=== PATIENT | male | born 1975 | race Caucasian/White ===

== ENCOUNTER 2016-08-13 00:21 | Inpatient (IN) | payer OTHER ==
[~2016-08-13] VITALS: Ht 182.9 cm; Wt 152.7 kg
[2016-08-13] VITALS (7 sets, daily range): BP systolic 125–155; BP diastolic 82–102; PULSE 75–99; TEMP 36.6–36.8; O2SAT 93–96; Ht 182.9 cm; Wt 152.7 kg
[~2016-08-13 00:21] MED LIST: ABL/15 PO; ERGO1TAB10 PO; TIZA4CAP PO; TOPI100T20 PO; TOPI50TA16 PO; VENL75CA73 PO
[2016-08-13] MEDS ORDERED: HYDROmorphone INJ 1 MG/ML SYR IV STA ×2 (00:43→02:45)
[2016-08-13] MEDS ORDERED: ONDANSETRON INJ 2 MG/ML 2 ML VIAL IV STA ×2 (00:43→02:45)
--- NOTE | 2016-08-13 00:52 | EMERGENCY ROOM VISIT NOTE ---
History Report prepared by Dave: Grisel Zapata Under the Supervision of: Dr. Willie Cooper M.D. First contact with patient: 00:32 Chief Complaint: ABDOMINAL PAIN Stated Complaint: ABD PAIN,PRESSURE Nursing Triage Summary: Patient c/o generalized abdominal pain that began "a few months ago." Associates hot flashes and nausea. History of Present Illness The patient is a 41 year old male who presents to the Emergency Room with complaints of persistent, progressively worsening, diffuse abdominal pain that began a few months ago. He currently rates his discomfort as an 8/10 in severity. The patient describes his pain as a pressure over his abdomen. He additionally associates nausea, abdominal bloating, and dry heaving with his symptoms today. The patient additionally notes hot flashes, difficulty breathing, and swelling in his legs today, but denies any chest pain or fevers. He states that he has taken Antacids without relief of his symptoms. The patient stats that lying flat worsens his pain. The patient's notes that the patient's face has seemed aguero over the past month. The patient states that he has been drinking nightly for the past several years. He notes that there is a family history of cirrhosis of the liver, noting that his father has from that. The patient states that he was previously evaluated in the emergency department for abdominal pain and states that his workup revealed constipation. He denies his pain today feeling similar to his constipation pain. Source of History: patient, spouse/significant other () Onset: few months ago Position: abdomen (diffuse) Symptom Intensity: 8/10 Quality: pressure Timing: worsening (progressively), other (persistent) Modifying Factors (Worsening): other (lying flat) Associated Symptoms: + nausea, No chest pain, No fevers Note: Associated Symptoms: abdominal bloating, dry heaving, hot flashes, difficulty breathing, swelling in his legs, face is aguero. Review of Systems See HPI for pertinent positives & negatives. A total of 10 systems reviewed and were otherwise negative. Past Medical & Surgical Medical Problems: (1) Hypertension Nos (2) Migraine (3) SBO (small bowel obstruction) Family History Cirrhosis of liver Diabetes mellitus FHx: cancer FHx: heart disease Social History Smoking Status: Never Smoker Alcohol Use: occasionally Marital Status: Occupation Status: employed Current/Historical Medications Scheduled Aripiprazole (Abilify), 15 MG PO DAILY Ergocalciferol (Vitamin D2), 1.25 MG PO WK Tizanidine (Zanaflex), 8 MG PO DAILY Topiramate (Topamax), 50 MG PO DAILY Topiramate (Topamax), 100 MG PO DAILY Venlafaxine Hcl (Venlafaxine Extended Rel), 150 MG PO DAILY Allergies Coded Allergies: No Known Allergies (Unverified , 08/13/16) Physical Exam Vital Signs Date Time Temp Pulse Resp B/P Pulse Ox O2 Delivery O2 Flow Rate FiO2 08/13/16 03:50 86 18 137/73 98 Room Air 08/13/16 01:49 101 16 133/80 96 Room Air 08/13/16 00:27 37.1 112 18 171/124 94 Room Air Physical Exam GENERAL: Patient is in moderate distress, uncomfortable appearing. HEENT: No acute trauma, normocephalic atraumatic, mucous membranes moist, no nasal congestion, no scleral icterus. NECK: No stridor, no adenopathy, no meningismus, trachea is midline. LUNGS: No dyspnea. Clear to auscultation and equal bilaterally. No wheeze, no rhonchi. HEART: Regular rate and rhythm. No murmurs, rubs, gallops appreciated. ABDOMEN: Diffuse vague tenderness to abdomen with fluid wave. Soft, bowel sounds positive, no masses appreciated, no peritonitis. BACK: No midline tenderness, no CVA tenderness EXTREMITIES: Normal motion all extremities, no cyanosis, no edema. NEUROLOGIC: Alert and oriented, no acute motor or sensory deficits, no focal weakness, cranial nerves grossly intact. SKIN: Diaphoretic. No rash, no jaundice. Medical Decision & Procedures ER Provider Diagnostic Interpretation: X ray results and stated below per my interpretation and radiologist interpretation. Other radiology results and stated below per my review and radiologist interpretation: CT Abdomen and Pelvis: There are a few left basilar lobe pulmonary nodules. Followup to exclude malignancy would be useful. There are a few dilated mid abdominal small bowel loops, likely due to early/ partial small bowel obstruction with likely transition in the left upper pelvis on series 2 image 74. Enteritis/ileus is in the differential. There is associated mesenteric edema. No free fluid. No free air. No evidence of pneumatosis or portal venous gas. Unremarkable appendix. There are a few colonic diverticula, but no CT evidence of acute diverticulitis. Hepatic steatosis. No CT evidence of acute cholecystitis or acute pancreatitis. No urinary obstruction. urinary bladder wall thickening, may be due to cystitis. Dilated mid abdominal small bowel loops, may be due to early/partial small bowel obstruction or enteritis. Radiologist: Lidya Kemp MD Study ready at 021 and initial results transmitted at 0229 Laboratory Results 08/13/16 01:00 Red Blood Count 5.18, Mean Corpuscular Volume 90.7, Mean Corpuscular Hemoglobin 30.5, Mean Corpuscular Hemoglobin Concent 33.6, Mean Platelet Volume 10.9, Neutrophils (%) (Auto) 72.6, Lymphocytes (%) (Auto) 15.8, Monocytes (%) (Auto) 9.1, Eosinophils (%) (Auto) 1.2, Basophils (%) (Auto) 1.2, Neutrophils # (Auto) 6.07, Lymphocytes # (Auto) 1.32, Monocytes # (Auto) 0.76, Eosinophils # (Auto) 0.10, Basophils # (Auto) 0.10 08/13/16 01:00 Test 08/13/16 01:00 White Blood Count 8.36 K/uL (4.8-10.8) Red Blood Count 5.18 M/uL (4.7-6.1) Hemoglobin 15.8 g/dL (14.0-18.0) Hematocrit 47.0 % (42-52) Mean Corpuscular Volume 90.7 fL (80-100) Mean Corpuscular Hemoglobin 30.5 pg (25-34) Mean Corpuscular Hemoglobin Concent 33.6 g/dl (32-36) Platelet Count 222 K/uL (130-400) Mean Platelet Volume 10.9 fL (7.4-10.4) Neutrophils (%) (Auto) 72.6 % Lymphocytes (%) (Auto) 15.8 % Monocytes (%) (Auto) 9.1 % Eosinophils (%) (Auto) 1.2 % Basophils (%) (Auto) 1.2 % Neutrophils # (Auto) 6.07 K/uL (1.4-6.5) Lymphocytes # (Auto) 1.32 K/uL (1.2-3.4) Monocytes # (Auto) 0.76 K/uL (0.11-0.59) Eosinophils # (Auto) 0.10 K/uL (0-0.5) Basophils # (Auto) 0.10 K/uL (0-0.2) RDW Standard Deviation 44.6 fL (36.4-46.3) RDW Coefficient of Variation 13.6 % (11.5-14.5) Immature Granulocyte % (Auto) 0.1 % Immature Granulocyte # (Auto) 0.01 K/uL (0.00-0.02) Urine Color YELLOW Urine Appearance CLEAR (CLEAR) Urine pH 5.0 (4.5-7.5) Urine Specific [place] 1.019 (1.000-1.030) Urine Protein NEG (NEG) Urine Glucose (UA) NEG (NEG) Urine Ketones NEG (NEG) Urine Occult Blood TRACE (NEG) Urine Nitrite NEG (NEG) Urine Bilirubin NEG (NEG) Urine Urobilinogen NEG (NEG) Urine Leukocyte Esterase NEG (NEG) Urine WBC (Auto) 1-5 /hpf (0-5) Urine RBC (Auto) 0-4 /hpf (0-4) Urine Hyaline Casts (Auto) 0 /lpf (0-5) Urine Epithelial Cells (Auto) 0-5 /lpf (0-5) Urine Bacteria (Auto) NEG (NEG) Anion Gap 11.0 mmol/L (3-11) Est Creatinine Clear Calc Drug Dose 133.4 ml/min Estimated GFR () 95.5 Estimated GFR (Non- 82.4 BUN/Creatinine Ratio 12.0 (10-20) Calcium Level 9.0 mg/dl (8.5-10.1) Magnesium Level 2.3 mg/dl (1.8-2.4) Total Bilirubin 0.3 mg/dl (0.2-1) Direct Bilirubin < 0.1 mg/dl (0-0.2) Aspartate Amino Transf (AST/SGOT) 36 U/L (15-37) Alanine Aminotransferase (ALT/SGPT) 91 U/L (12-78) Alkaline Phosphatase 119 U/L (45-117) Troponin I < 0.015 ng/ml (0-0.045) Total Protein 8.1 gm/dl (6.4-8.2) Albumin 4.1 gm/dl (3.4-5.0) Lipase 294 U/L (73-393) Laboratory results as reviewed by me. Medications Administered Medications (Trade) Dose Ordered Sig/[place]que Route Start Time Stop Time Status Last Admin Dose Admin Ondansetron HCl (Zofran Inj) 4 mg NOW STAT IV 08/13/16 00:43 08/13/16 00:44 DC 08/13/16 01:29 4 MG Hydromorphone HCl (Dilaudid Inj) 1 mg NOW STAT IV 08/13/16 00:43 08/13/16 00:44 DC 08/13/16 01:30 1 MG Fentanyl Citrate (Fentanyl Inj) 150 mcg NOW STAT IV 08/13/16 01:52 08/13/16 01:53 DC 08/13/16 02:10 150 MCG Hydromorphone HCl (Dilaudid Inj) 1 mg NOW STAT IV 08/13/16 02:45 08/13/16 02:46 DC 08/13/16 03:14 1 MG Ondansetron HCl 4 mg 4 mg NOW STAT IV 08/13/16 02:45 08/13/16 02:46 DC 08/13/16 03:14 4 MG Sodium Chloride (Nss 1000ml) 1,000 ml @ 75 mls/hr [id number] STAT IV 08/13/16 02:45 08/13/16 16:04 08/13/16 03:14 75 MLS/HR ED Course 0038: The patient was evaluated in room B10. A complete history and physical exam was performed. 0043: Ordered Dilaudid Inj 1 mg IV, Zofran Inj 4 mg IV. 0152: I reevaluated the patient and he has had no relief of his symptoms. He is going to have a CT scan. Ordered 150 mcg IV. 0242: I reevaluated the patient and he states that he is starting to feel better. He currently rates his discomfort as a 5/10 in severity. I discussed all the exam findings with him and I discussed the treatment plan. He verbalized complete understanding and agreement. He is going to be evaluated for further treatment. 0245: Ordered Sodium Chloride 1000 ml @ 75 mls/hr IV, Zofran Inj 4 mg IV, Dilaudid Inj 1 mg IV. 0255: I discussed the patient's case with Dr. Stock [facility] [place]. He is going to evaluate the patient for further treatment. Medical Decision Differential: Cholecystitis, Gallbladder disfunction, Hepatic Disfunction, Gastritis/PUD, Pancreatitis, ACS, Aortic Pathology, amongst other pathologies entertained. 41 yr old male with several months of non-specific abdominal pain and over last month admits swelling to face and abdomen. Admits chronic alcohol use as well though is not malnutritioned. He is quite uncomfortable with acute worsening pain this evening and multiple rounds dry heaving. Non-specific exam findings but clearly not feeling well. Multiple rounds narcotics. As continued narcotic need, even with normal labs, felt imaging necessary. CT with partial SBO vs enteritis though with clear transition point this is concerning, though unusual given no previous surgical history. No vomiting though noting continued nausea thus for now will hold off on NG tube until hospitalist eval. He is stable without evidence of infarction. Will bring in for further monitoring and NPO. Consults Time Called: 0246 Consulting Physician: LACI Grewal Returned Call: [phone] I discussed the patient's case with LACI Grewal. He is going to evaluate the patient for further treatment. Impression Primary Impression: Partial small bowel obstruction Additional Impression: Intractable abdominal pain Scribe Attestation The scribe's documentation has been prepared under my direction and personally reviewed by me in its entirety. I confirm that the note above accurately reflects all work, treatment, procedures, and medical decision making performed by me. Departure Information Dispostion Being Evaluated By Hospitalist Jonh Rogers M.D. (PCP) Problem Qualifiers
[2016-08-13 01:13] LABS: BASO % 1.2 %; COMPLETE YES; EOS % 1.2 %; IG% 0.1 %; LYMPH % 15.8 %; LYMPH ABS # 1.32 K/uL (1.2-3.4); MEAN CELL VOLUME 90.7 fL (80-100); MEAN CORPUSCULAR HEMOGLOBIN 30.5 pg (25-34); MEAN CORPUSCULAR HGB CONC 33.6 g/dl (32-36); MEAN PLATELET VOLUME 10.9 fL (7.4-10.4); MONO % 9.1 %; NEUT % 72.6 %; PLATELET COUNT 222 K/uL (130-400); RED BLOOD COUNT 5.18 M/uL (4.7-6.1); WHITE BLOOD COUNT 8.36 K/uL (4.8-10.8)
[2016-08-13 01:20] LABS: URINE APPEARANCE CLEAR (CLEAR); URINE BILIRUBIN NEG (NEG); URINE COLOR YELLOW; URINE EPITHELIAL CELL AUTO 0-5 /lpf (0-5); URINE NITRITE NEG (NEG); URINE SPECIFIC GRAVITY 1.019 (1.000-1.030); UROBILINOGEN NEG (NEG); ZZUR CULT IF INDIC CLEAN CATCH NO
[2016-08-13 01:21] LABS: MANUAL MICROSCOPIC REQUIRED? NO; REVIEW REQ? NO
[2016-08-13 01:30] LABS: ALT/SGPT 91 U/L (12-78); AST/SGOT 36 U/L (15-37); BLOOD UREA NITROGEN 13 mg/dl (7-18); CARBON DIOXIDE 24 mmol/L (21-32); CHLORIDE 109 mmol/L (98-107); GLUCOSE 108 mg/dl (70-99); MAGNESIUM 2.3 mg/dl (1.8-2.4); POTASSIUM 3.6 mmol/L (3.5-5.1); SODIUM 144 mmol/L (136-145)
[2016-08-13 01:35] LABS: ALKALINE PHOSPHATASE 119 U/L (45-117)
[2016-08-13] MEDS ORDERED: FENTANYL CITRATE INJ 50 MCG/1 ML 2 ML VIAL IV STA (01:52)
[2016-08-13] MEDS ORDERED: OPTIRAY 320 IV PRN (02:00)
[2016-08-13] MEDS ORDERED: SODIUM CHLORIDE 0.9% 1000ML 1,000 ML IV STA (02:45)
[2016-08-13] MEDS ORDERED: ONDANSETRON INJ 2 MG/ML 2 ML VIAL IV PRN (03:15)
[2016-08-13] MEDS ORDERED: LORAZEPAM 2 MG/ML 1 ML VIAL IV PRN (03:45)
--- NOTE | 2016-08-13 04:12 | History and Physical ---
History & Physical Date & Time of Service: Aug 13, 2016 at 03:53 Chief Complaint: Abd Pain,Pressure Primary Care Physician: Jonh Oakley M.D. History of Present Illness Source: patient 41 y/o M w/Hx bipolar disease and obesity. Pt states that he has had abdominal pain intermittently for 2 months. He has occasional constipation and denies diarrhea. His pain became acutely worse today and was accompanied by nausea and mostly dry heaving. He has not been able to tolerate PO intake. A CT of the abdomen was obtained in the ER which showed a likely SBO. He does not have a history of abdominal surgery. He denies fevers, SOB, CP or dysuria. His states that she feels his face and legs are swollen although he does not have pitting edema and was not aware of this himself. 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 Pt denies dependence on alcohol - States he drinks up to 12 beers a day but goes days without alcohol occasionally Smoking Status: Never Smoker Alcohol Use: heavy Marital Status: Occupational Status: employed Allergies Coded Allergies: No Known Allergies (Unverified , 08/13/16) Home Medications Scheduled Aripiprazole (Abilify), 15 MG PO DAILY Ergocalciferol (Vitamin D2), 1.25 MG PO WK Tizanidine (Zanaflex), 8 MG PO DAILY Topiramate (Topamax), 50 MG PO DAILY Topiramate (Topamax), 100 MG PO DAILY Venlafaxine Hcl (Venlafaxine Extended Rel), 150 MG PO DAILY Review of Systems Constitutional: No chills, No fever, No sweats Eyes: No eye pain, No worsening of vision ENT: No hearing loss, No nasal symptoms, No unusual epistaxis Respiratory: No cough, No sputum, No wheezing Cardiovascular: No PND, No chest pain, No orthopnea Abdomen: + nausea, + pain, + vomiting Musculoskeletal: No joint pain, No muscle pain Genitourinary - Male: No dysuria, No hematuria, No urinary frequency Neurologic: No memory loss, No paralysis, No weakness Psychiatric: No depression symptoms Endocrine: No fatigue Hematologic / Lymphatic: No abnormal bleeding/bruising Integumentary: No rash Allergic / Immunologic: No environmental allergies, No seasonal allergies Physical Exam Vital Signs Date Time Temp Pulse Resp B/P Pulse Ox O2 Delivery O2 Flow Rate FiO2 08/13/16 01:49 101 16 133/80 96 Room Air 08/13/16 00:27 37.1 112 18 171/124 94 Room Air General Appearance: WD/WN, no apparent distress, + pertinent finding (Obese young male in no distress) Head: normocephalic, atraumatic Eyes: normal inspection, PERRL, EOMI ENT: normal ENT inspection, hearing grossly normal, pharynx normal Neck: supple, + pertinent finding (Exam limited by habitus) Respiratory/Chest: chest non-tender, lungs clear, normal breath sounds Cardiovascular: regular rate, rhythm, no edema, no gallop, no JVD, no murmur, normal peripheral pulses Abdomen/GI: + tenderness (Mild diffuse tenderness - hypoactive BS - distention) , + distended Back: normal inspection Extremities/Musculoskelatal: normal inspection, no calf tenderness, normal capillary refill, no pedal edema, normal range of motion 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 nml as tested, no motor/sensory deficits, alert, normal mood/affect, normal reflexes, oriented x 3 Skin: normal color, warm/dry, no rash Lymphatic: no adenopathy Diagnostics Laboratory Results Results Past 24 Hours Test 08/13/16 01:00 Range/Units White Blood Count 8.36 4.8-10.8 K/uL Red Blood Count 5.18 4.7-6.1 M/uL Hemoglobin 15.8 14.0-18.0 g/dL Hematocrit 47.0 42-52 % Mean Corpuscular Volume 90.7 80-100 fL Mean Corpuscular Hemoglobin 30.5 25-34 pg Mean Corpuscular Hemoglobin Concent 33.6 32-36 g/dl Platelet Count 222 130-400 K/uL Mean Platelet Volume 10.9 7.4-10.4 fL Neutrophils (%) (Auto) 72.6 % Lymphocytes (%) (Auto) 15.8 % Monocytes (%) (Auto) 9.1 % Eosinophils (%) (Auto) 1.2 % Basophils (%) (Auto) 1.2 % Neutrophils # (Auto) 6.07 1.4-6.5 K/uL Lymphocytes # (Auto) 1.32 1.2-3.4 K/uL Monocytes # (Auto) 0.76 0.11-0.59 K/uL Eosinophils # (Auto) 0.10 0-0.5 K/uL Basophils # (Auto) 0.10 0-0.2 K/uL RDW Standard Deviation 44.6 36.4-46.3 fL RDW Coefficient of Variation 13.6 11.5-14.5 % Immature Granulocyte % (Auto) 0.1 % Immature Granulocyte # (Auto) 0.01 0.00-0.02 K/uL Urine Color YELLOW Urine Appearance CLEAR CLEAR Urine pH 5.0 4.5-7.5 Urine Specific [place] 1.019 1.000-1.030 Urine Protein NEG NEG Urine Glucose (UA) NEG NEG Urine Ketones NEG NEG Urine Occult Blood TRACE NEG Urine Nitrite NEG NEG Urine Bilirubin NEG NEG Urine Urobilinogen NEG NEG Urine Leukocyte Esterase NEG NEG Urine WBC (Auto) 1-5 0-5 /hpf Urine RBC (Auto) 0-4 0-4 /hpf Urine Hyaline Casts (Auto) 0 0-5 /lpf Urine Epithelial Cells (Auto) 0-5 0-5 /lpf Urine Bacteria (Auto) NEG NEG Sodium Level 144 136-145 mmol/L Potassium Level 3.6 3.5-5.1 mmol/L Chloride Level 109 98-107 mmol/L Carbon Dioxide Level 24 21-32 mmol/L Anion Gap 11.0 3-11 mmol/L Blood Urea Nitrogen 13 7-18 mg/dl Creatinine 1.10 0.60-1.40 mg/dl Est Creatinine Clear Calc Drug Dose 133.4 ml/min Estimated GFR () 95.5 Estimated GFR (Non- 82.4 BUN/Creatinine Ratio 12.0 10-20 Random Glucose 108 70-99 mg/dl Calcium Level 9.0 8.5-10.1 mg/dl Magnesium Level 2.3 1.8-2.4 mg/dl Total Bilirubin 0.3 0.2-1 mg/dl Direct Bilirubin < 0.1 0-0.2 mg/dl Aspartate Amino Transf (AST/SGOT) 36 15-37 U/L Alanine Aminotransferase (ALT/SGPT) 91 12-78 U/L Alkaline Phosphatase 119 45-117 U/L Troponin I < 0.015 0-0.045 ng/ml Total Protein 8.1 6.4-8.2 gm/dl Albumin 4.1 3.4-5.0 gm/dl Lipase 294 73-393 U/L Diagnostic Radiology CT abdomen: Consistent with mid small bowel obstruction Hepatic steatosis Impression Assessment and Plan 41 y/o M w/Hx bipolar disease and obesity. Pt states that he has had abdominal pain intermittently for 2 months. He has occasional constipation and denies diarrhea. His pain became acutely worse today and was accompanied by nausea and mostly dry heaving. He has not been able to tolerate PO intake. A CT of the abdomen was obtained in the ER which shows a likely SBO. 1) SBO - NPO, IVF, pain control and antiemetics as needed - surgery consulted as it is concerning that his symptoms have been present for 2 months. Pt is refusing an NGT at present - I have discussed NGT placement with him in the event that there is no improvement and he understands that this may be necessary. 2) Bipolar disease - his meds should not be D/Cd abruptly so that we will allow for ingestion as tolerated - there are no IV equivalents 3) Excessive ETOH intake - denies dependence or a history of withdrawal - we will place him on a daily banana bag in addition to provided IVF and provide Ativan PRN Heparin prophylaxis, full code Total time for this admit including review of records, labs, imaging - discussion with ER attending, pt and family 35 min Level of Care Telemetry Resuscitation Status FULL RESUSCITATION VTE Prophylaxis VTE Risk Assessment Done? Y/N: Yes Risk Level: Moderate Given or contraindicated: Unfractionated heparin SQ
[2016-08-13] MEDS ORDERED: LORAZEPAM INJ 1 MG in SYRINGE 0.5 ML IV PRN (05:15)
[2016-08-13] MEDS: MULTI-VITAMIN INFUSION INJ 10 ML, THIAMINE HCL INJ 100 MG, FoLIC ACID INJ 1 MG in SODIU... IV SCH (05:37)
[2016-08-13] MEDS: HYDROmorphone INJ 1 MG/ML SYR IV PRN ×3 (05:38→20:55)
[2016-08-13] MEDS ORDERED: INFLUENZA ADMINISTRATION CHARGE ONE (05:45)
[2016-08-13] MEDS ORDERED: INFLUENZA VIRUS QUAD VACCINE 0.5 ML SYR IM. ONE (05:45)
[2016-08-13] MEDS: D5NSS + 20MEQ KCL 1,000 ML IV SCH ×2 (06:21→15:42)
[2016-08-13 06:55] LABS: PARTIAL THROMBOPLASTIN RATIO 1.1; PROTHROMBIN TIME (PATIENT) 10.5 SECONDS (9.0-12.0)
--- NOTE | 2016-08-13 07:34 | Hospitalist Progress Note ---
Hospitalist Progress Note Date of Service Aug 13, 2016. (Laura Choi PA-C) Subjective Pt evaluation today including: conversation w/ patient, conversation w/ family , physical exam, chart review, lab review, review of studies, conversation w/ health analytics consultant Pain: mild abd pain PO Intake: Poor Voiding: no voiding problems The patient was seen and examined this morning. Pt reports feeling tired and uncomfortable with generalized abdominal pain throughout. He has not eaten anything today. Pt admits to waves of nausea with food in the past but none currently. Last BM was yesterday, formed, denies hematochezia and melana, no BRBPR. He denies ever having a workup completed as an outpatient and has not seen his PCP for this. Never had colonoscopy in the past. He admits to drinking heavily, with 2-8 beers 6 days out of the week to me. More per GI's note. PT eats one large meal per day with meat, starch and one vegetable, denies exercise. Pt states she notices his legs have been swollen, but the pt denies noticing it prior to this admission. 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 All Other Systems: Reviewed and Negative (other than listed in HPI) (Laura Choi, AARON) Objective Vital Signs Date Time Temp Pulse Resp B/P Pulse Ox O2 Delivery O2 Flow Rate FiO2 08/13/16 05:17 36.8 93 16 137/84 93 Room Air 08/13/16 03:50 86 18 137/73 98 Room Air 08/13/16 01:49 101 16 133/80 96 Room Air 08/13/16 00:27 37.1 112 18 171/124 94 Room Air (Laura Choi PA-C) Physical Exam General Appearance: WD/WN, no apparent distress, + obese Eyes: PERRL, EOMI ENT: hearing grossly normal, pharynx normal Neck: supple, no JVD Respiratory/Chest: chest non-tender, lungs clear, normal breath sounds, no respiratory distress, no accessory muscle use Cardiovascular: regular rate, rhythm, no murmur Abdomen: normal bowel sounds, non tender, + distended, + hepatomegaly, + splenomegaly, + pertinent finding (+ generalized pain with palpation but no acute focus, + dull with percussion throughout. ) Extremities: non-tender, normal inspection, no calf tenderness, + pedal edema ( 1+ pitting up to knee) Neurologic/Psychiatric: alert, normal mood/affect Skin: normal color, warm/dry (Laura Choi PA-C) Laboratory Results Last 24 Hours Test 08/13/16 01:00 White Blood Count 8.36 K/uL Red Blood Count 5.18 M/uL Hemoglobin 15.8 g/dL Hematocrit 47.0 % Mean Corpuscular Volume 90.7 fL Mean Corpuscular Hemoglobin 30.5 pg Mean Corpuscular Hemoglobin Concent 33.6 g/dl Platelet Count 222 K/uL Mean Platelet Volume 10.9 fL Neutrophils (%) (Auto) 72.6 % Lymphocytes (%) (Auto) 15.8 % Monocytes (%) (Auto) 9.1 % Eosinophils (%) (Auto) 1.2 % Basophils (%) (Auto) 1.2 % Neutrophils # (Auto) 6.07 K/uL Lymphocytes # (Auto) 1.32 K/uL Monocytes # (Auto) 0.76 K/uL Eosinophils # (Auto) 0.10 K/uL Basophils # (Auto) 0.10 K/uL RDW Standard Deviation 44.6 fL RDW Coefficient of Variation 13.6 % Immature Granulocyte % (Auto) 0.1 % Immature Granulocyte # (Auto) 0.01 K/uL Prothrombin Time 10.5 SECONDS Prothromb Time International Ratio 1.0 Activated Partial Thromboplast Time 27.4 SECONDS Partial Thromboplastin Ratio 1.1 Urine Color YELLOW Urine Appearance CLEAR Urine pH 5.0 Urine Specific [place] 1.019 Urine Protein NEG Urine Glucose (UA) NEG Urine Ketones NEG Urine Occult Blood TRACE Urine Nitrite NEG Urine Bilirubin NEG Urine Urobilinogen NEG Urine Leukocyte Esterase NEG Urine WBC (Auto) 1-5 /hpf Urine RBC (Auto) 0-4 /hpf Urine Hyaline Casts (Auto) 0 /lpf Urine Epithelial Cells (Auto) 0-5 /lpf Urine Bacteria (Auto) NEG Sodium Level 144 mmol/L Potassium Level 3.6 mmol/L Chloride Level 109 mmol/L Carbon Dioxide Level 24 mmol/L Anion Gap 11.0 mmol/L Blood Urea Nitrogen 13 mg/dl Creatinine 1.10 mg/dl Est Creatinine Clear Calc Drug Dose 133.4 ml/min Estimated GFR () 95.5 Estimated GFR (Non- 82.4 BUN/Creatinine Ratio 12.0 Random Glucose 108 mg/dl Calcium Level 9.0 mg/dl Magnesium Level 2.3 mg/dl Total Bilirubin 0.3 mg/dl Direct Bilirubin < 0.1 mg/dl Aspartate Amino Transf (AST/SGOT) 36 U/L Alanine Aminotransferase (ALT/SGPT) 91 U/L Alkaline Phosphatase 119 U/L Troponin I < 0.015 ng/ml Total Protein 8.1 gm/dl Albumin 4.1 gm/dl Lipase 294 U/L (Laura Choi, AARON) Assessment and Plan 41 y/o M w/Hx bipolar disease and obesity. Pt states that he has had abdominal pain intermittently for 2 months. He has occasional constipation and denies diarrhea. His pain became acutely worse today and was accompanied by nausea and mostly dry heaving. He has not been able to tolerate PO intake. A CT of the abdomen was obtained in the ER which shows a likely SBO. Partial SBO vs infectious etiology - GI consulted this morning- appreciate recs - will transition to clears - Stool cultures ordered, c diff, O&P - follow - Stool softeners, miralax daily. Continue aggressive bowel regimen. - Gen Surg consulted and do not see reason for surgery at this time. - Cont IVF, pain control and antiemetics as needed CT findings 1. Mildly distended and fluid-filled loops of proximal small bowel are nonspecific. Cortical clinically for evidence of a mild enteritis. There is no evidence of small bowel obstruction, and no thick walled bowel loops are identified. 2. Hepatomegaly and severe hepatic steatosis. 3. Mild cardiomegaly. 4. Mild splenomegaly. 5. There are mildly enlarged mediastinal and hilar lymph nodes partially visualized. Additionally, there are pulmonary and pleural-based nodules in the left lower lobe measuring up to 9 mm. Follow-up with a nonemergent CT scan of the chest is recommended for further interrogation. Bipolar disease - do not hold his home meds unless unable to tolerate orally, no IV equivalents - Continue home topiramate 150 mg QAM, effexor 150 mg QAM and abilify 15 mg QAM. Lung nodule - 9 mm lung nodule present in LLL, recommended follow up imaging with outpatient provider. Excessive ETOH intake - Heavy intake between 2-12 beers daily- denies dependence or a history of withdrawal - Counseled on cessation with CT scan findings of hepatomegaly and hepatic steatosis. Also counseled on improved diet and exercise, weight loss recommended. - Cont daily banana bag, ativan prn DVT ppx: SCDs, heparin SQ Code Status: Full Code Disposition: From home (Laura Choi, TOMASAC) Reviewed: Pt Seen/Exam by , KENNETH Notes, Labs, RAD (Lucy Langford MD) History PA Supervision Note: I interviewed and examined the patient. Discussed with the PA and agree with findings and plan as documented in the note. Any exceptions or clarifications are listed here: Pt still with significant nausea but no vomiting today, stephane clears for lunch and dinner with nausea afterwards. Abd still all across mid abdomen and is a 6/ 10. No BM in 2 days and has a pattern more towards constipation over the last few months. No heartburn, no blood in stool. Pt also complains of his whole body filling up with fluid a few times per week including legs, arms, and face. He c/o snoring and brother notes a wheezing noise which is clearly coming from upper airway. Pt denies any recent med changes, he is noncompliant with his CPAP machine at home. He notes dyspnea with exertion over the last few weeks. Reviewed CT abd/pel results with pt and family. He has never smoked, no toxic fume exposure, no travel in the last year. Vitals reviewed NAD, obese, AAOx3 HEENT anicteric sclerae, obese neck, no HIRAL, whistling sound noted with nasal breathing RRR no mgr nl S1S2 PULM CTAB no wcr Abd +BS, soft, diffusely +TTP without guarding or rebound tenderness, no masses , +hepatomegaly Ext trace pitting edema legs bilat SKin no rashes A/P: 41 yo obese male with h/o bipolar d/o, here with persistent diffuse abd pain and nausea with vomiting. Found to have severe fatty liver, mildly distended fluid filled proximal small bowel loops, pulm nodules and mildly enlarged hilar HIRAL on CT abd/pel. Differential includes infection, IBD, malignancy? -bisacodyl suppos -collect stool sample for cultures -plan for outpt colonoscopy -encouraged weight loss, abstinence from EtOH, low fat and low carb diet for fatty liver -try percocet for pain to see if could stephane percocet for home use for pain -antiemetics -check Chest CT here given SOB, pulm nodules and hilar adenopathy -check ECHO given edema and enlarged heart seen on CT -watch for EtOH withdrawal as is tachy and hypertensive -Flonase for upper airway congestion -use CPAP tonight and at home (has at home) -repeat AAS in AM -adv diet as tolerated -appreciate GI consult Documented By: Lucy Langford (Lucy Langford MD)
--- NOTE | 2016-08-13 08:13 | DIAGNOSTIC IMAGING REPORT ---
CT SCAN OF THE ABDOMEN AND PELVIS WITH IV CONTRAST CLINICAL HISTORY: Generalized abdominal pain. COMPARISON STUDY: Abdominal radiographs dated 03/03/2016. TECHNIQUE: Following the IV administration of 118 cc of Optiray 320, CT scan of the abdomen and pelvis is performed from the lung bases to the proximal femora. Images are reviewed in the axial, sagittal, and coronal planes. IV contrast was administered without complication. Automated dose control exposure was utilized. CT DOSE: 2348.89 mGy.cm FINDINGS: Lung bases: The heart is mildly enlarged and without pericardial effusion. There is a 9 mm pleural-based nodule in the left lower lobe along the major fissure seen on image #11. At least 3 additional left lower lobe pulmonary nodules are identified measuring up to 5 mm. There is no airspace consolidation or pleural effusion. Mildly enlarged subcarinal and hilar lymph nodes are partially visualized. A small hiatal hernia is noted. Liver: The contrast-enhanced liver is enlarged, measuring 20 cm in length. The liver demonstrates diffusely diminished attenuation consistent with hepatic steatosis. Fatty sparing is seen adjacent to the gallbladder fossa. There is no intrahepatic biliary ductal dilatation. The hepatic veins and portal veins are patent. Gallbladder: Unremarkable. Spleen: The spleen is mildly enlarged measuring 13.6 cm in length. Pancreas: Unremarkable. Adrenal glands: Unremarkable. Kidneys: The contrast enhanced kidneys are normal in size and without hydronephrosis. The kidneys enhance symmetrically. Abdominal vasculature: The abdominal aorta is normal in course and caliber. Bowel: There are mildly distended fluid-filled loops of proximal small bowel. These gradually transition to normal caliber loops. There is no evidence of bowel obstruction. There is mild to moderate colonic fecal retention. The appendix is well-visualized and normal. Peritoneum: There is no intraperitoneal free air or abdominal ascites. There is a fat-containing umbilical hernia. Lymphadenopathy: None. Pelvic viscera: The bladder, prostate, and seminal vesicles are normal as visualized. Skeletal structures: No lytic or blastic lesions are seen. IMPRESSION: 1. Mildly distended and fluid-filled loops of proximal small bowel are nonspecific. Cortical clinically for evidence of a mild enteritis. There is no evidence of small bowel obstruction, and no thick walled bowel loops are identified. 2. Hepatomegaly and severe hepatic steatosis. 3. Mild cardiomegaly. 4. Mild splenomegaly. 5. There are mildly enlarged mediastinal and hilar lymph nodes partially visualized. Additionally, there are pulmonary and pleural-based nodules in the left lower lobe measuring up to 9 mm. Follow-up with a nonemergent CT scan of the chest is recommended for further interrogation. Electronically signed by: Osorio Esquivel M.D. 08/13/2016 8:11 AM Dictated Date/Time: 08/13/2016 8:03 AM
[2016-08-13] MEDS: ARIPIprazole TAB 15 MG TAB PO SCH (08:58)
[2016-08-13] MEDS: TOPIRAMATE 50 MG TAB PO SCH (08:59)
[2016-08-13] MEDS: TOPIRAMATE 100 MG TAB PO SCH (08:59)
[2016-08-13] MEDS ORDERED: VENLAFAXINE HCL XR 150 MG CAPXR PO SCH (09:00)
--- NOTE | 2016-08-13 09:37 | CONSULTATION REPORT ---
DATE OF CONSULTATION: 08/13/2016 REASON FOR CONSULT: Small-bowel obstruction. HISTORY OF PRESENT ILLNESS: The patient is a 41-year-old male admitted by the hospitalist overnight for abdominal pain across the mid abdomen that has been present for 2 months. He has had nausea and dry heaves. His convinced him to finally come in the ER. He has not seen his family doctor previously. He has not had any previous bowel obstructions, has not had previous abdominal surgery other than an inguinal hernia. He has been moving his bowels and passing flatus well. These symptoms have been present but not since admission this morning. He does not have any nausea currently. He was taking some [id number] medications for heartburn as he feels some burning in his upper abdomen, nothing in the esophagus. PAST MEDICAL HISTORY: 1. Bipolar. 2. Obesity. PAST SURGICAL HISTORY: Right inguinal hernia repair and hydrocelectomy and knee surgery. 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 He drinks between 2-8 beers regularly but not every day. ALLERGIES: NKDA. HOME MEDICATIONS: Abilify 15 mg daily, vitamin D supplement, Zanaflex 8 mg daily, Topamax 150 mg daily, and venlafaxine 150 mg daily. REVIEW OF SYSTEMS: GASTROINTESTINAL: As above. No reflux esophagitis. He has not seen his family doctor for these problems. No back pain or right upper quadrant pain. PHYSICAL EXAMINATION: GENERAL: He is in no acute distress, resting comfortably in bed. VITAL SIGNS: Temperature 36.7, pulse 92, respirations 16, blood pressure 148/100, pulse ox 93% on room air. HEENT: Unremarkable. He apparently refused an NG tube. ABDOMEN: Soft, minimally distended and no localizing tenderness. No inguinal hernias. LABORATORY DATA: White count is 8000, hemoglobin 15.8, hematocrit 47.0, platelets 223,000. Sodium 144, potassium 3.6, BUN 13, creatinine 1.1, glucose 108. IMAGING: Noncontrast CT was read with some bowel dilation, possible transition point and possibly early small-bowel obstruction. To me there is minimal small bowel dilation of the lower mid abdomen, however, the lack of contrast is suboptimal, but not worth repeating at this point. IMPRESSION: Abdominal pain. PLAN: His history and clinical findings do not suggest a bowel obstruction. He does not have any surgical findings at this time. Would consider GI evaluation. [facility]
--- NOTE | 2016-08-13 10:42 | Gastrointestinal Consultation ---
Gastrointestinal Consultation Date of Consultation: Aug 13, 2016 Attending Physician: Dr. Oakley Consulting Physician: Zahira Wright PA-C Reason for Consultation: Chronic abdominal pain, SBO History of Present Illness Patient is a 41 year old male who was admitted with questionable findings of an SBO vs enteritis on CT imaging. The patient reports a 6 month history of abdominal discomfort & a change in his bowel habits. He reports he has felt that despite moving his bowels regularly, he may not be evacuating his stool. He denies any diarrhea. He describes his discomfort as generalized. He reports that he has nausea and occasional vomiting. He reports that he does not experience heartburn or reflux. He does drink up to 12 beers per day. He denies any known family history of GI malignancy or IBD. He denies rectal bleeding. A stat read of a CT scan in the ER questions a PSBO vs enteritis. A final read indicated mildly distended and fluid filled loops of proximal small bowel that was nonspecific. He denies fever, chills, diarrhea. He was noted to have hepatomegaly & severe hepatic steatosis. He was also noted to have mildly enlarged mediastinal and hilar lymph nodes and pulmonary/pleural nodules in the LLL of the lung. He offers no further complaints. Past Medical/Surgical History Medical Problems: (1) Intractable abdominal pain Status: Acute (2) Partial small bowel obstruction Status: Acute Past Medical History: Bipolar disorder Obesity Past Surgical History: No reported surgical history Family History Cirrhosis of liver Diabetes mellitus FHx: cancer FHx: heart disease Social History Smoking Status: Former Smoker Alcohol Use: occasionally Marital Status: Occupation Status: employed Allergies Coded Allergies: No Known Allergies (Unverified , 08/13/16) Current Medications Home Meds and Scripts Medications Dose Route/Sig Max Daily Dose Days Date Category Zanaflex (Tizanidine HCl) 4 Mg Cap 8 Mg PO DAILY 03/03/16 Reported Venlafaxine Extended Rel (Venlafaxine Hcl) 75 Mg Cap 150 Mg PO DAILY 03/03/16 Reported Abilify (Aripiprazole) 15 Mg Tab 15 Mg PO DAILY 03/03/16 Reported Topamax (Topiramate) 100 Mg Tab 100 Mg PO DAILY 03/03/16 Reported Topamax (Topiramate) 50 Mg Tab 50 Mg PO DAILY 03/03/16 Reported Vitamin D2 (Ergocalciferol) 400 Unit Tab 1.25 Mg PO WK 03/03/16 Reported Review of Systems Constitutional: No problem reported Eyes: No problem reported Respiratory: No cough, No shortness of breath Cardiac: No chest pain Abdomen: + constipation, + nausea, + pain, No GI bleeding, No diarrhea, No vomiting Musculoskeletal: No joint pain Psych: No problem reported Heme: No problem reported Endo: No problem reported Skin: No problem reported Physical Exam Date Time Temp Pulse Resp B/P Pulse Ox O2 Delivery O2 Flow Rate FiO2 08/13/16 08:00 Room Air 08/13/16 07:34 36.7 92 16 148/100 93 Room Air 08/13/16 05:17 36.8 93 16 137/84 93 Room Air 08/13/16 03:50 86 18 137/73 98 Room Air 08/13/16 01:49 101 16 133/80 96 Room Air 08/13/16 00:27 37.1 112 18 171/124 94 Room Air General Appearance: WD/WN, no apparent distress Eyes: normal inspection, PERRL ENT: hearing grossly normal Respiratory/Chest: lungs clear, normal breath sounds Cardiovascular: regular rate, rhythm, no edema Abdomen: normal bowel sounds, soft, + tenderness (generalized) Extremities: non-tender Neurologic/Psych: alert, oriented x 3 Skin: normal color Laboratory Results Last 24 Hours Test 08/13/16 01:00 White Blood Count 8.36 K/uL Red Blood Count 5.18 M/uL Hemoglobin 15.8 g/dL Hematocrit 47.0 % Mean Corpuscular Volume 90.7 fL Mean Corpuscular Hemoglobin 30.5 pg Mean Corpuscular Hemoglobin Concent 33.6 g/dl Platelet Count 222 K/uL Mean Platelet Volume 10.9 fL Neutrophils (%) (Auto) 72.6 % Lymphocytes (%) (Auto) 15.8 % Monocytes (%) (Auto) 9.1 % Eosinophils (%) (Auto) 1.2 % Basophils (%) (Auto) 1.2 % Neutrophils # (Auto) 6.07 K/uL Lymphocytes # (Auto) 1.32 K/uL Monocytes # (Auto) 0.76 K/uL Eosinophils # (Auto) 0.10 K/uL Basophils # (Auto) 0.10 K/uL RDW Standard Deviation 44.6 fL RDW Coefficient of Variation 13.6 % Immature Granulocyte % (Auto) 0.1 % Immature Granulocyte # (Auto) 0.01 K/uL Prothrombin Time 10.5 SECONDS Prothromb Time International Ratio 1.0 Activated Partial Thromboplast Time 27.4 SECONDS Partial Thromboplastin Ratio 1.1 Urine Color YELLOW Urine Appearance CLEAR Urine pH 5.0 Urine Specific [place] 1.019 Urine Protein NEG Urine Glucose (UA) NEG Urine Ketones NEG Urine Occult Blood TRACE Urine Nitrite NEG Urine Bilirubin NEG Urine Urobilinogen NEG Urine Leukocyte Esterase NEG Urine WBC (Auto) 1-5 /hpf Urine RBC (Auto) 0-4 /hpf Urine Hyaline Casts (Auto) 0 /lpf Urine Epithelial Cells (Auto) 0-5 /lpf Urine Bacteria (Auto) NEG Sodium Level 144 mmol/L Potassium Level 3.6 mmol/L Chloride Level 109 mmol/L Carbon Dioxide Level 24 mmol/L Anion Gap 11.0 mmol/L Blood Urea Nitrogen 13 mg/dl Creatinine 1.10 mg/dl Est Creatinine Clear Calc Drug Dose 133.4 ml/min Estimated GFR () 95.5 Estimated GFR (Non- 82.4 BUN/Creatinine Ratio 12.0 Random Glucose 108 mg/dl Calcium Level 9.0 mg/dl Magnesium Level 2.3 mg/dl Total Bilirubin 0.3 mg/dl Direct Bilirubin < 0.1 mg/dl Aspartate Amino Transf (AST/SGOT) 36 U/L Alanine Aminotransferase (ALT/SGPT) 91 U/L Alkaline Phosphatase 119 U/L Troponin I < 0.015 ng/ml Total Protein 8.1 gm/dl Albumin 4.1 gm/dl Lipase 294 U/L Impression Patient is a 41 year old male with abdominal discomfort & a change in his bowel habits for 6 months. Imaging appears to represent a possible enteritis. Patient denies diarrhea, fever, or chills. CT imaging also indicates lymph node abnormalities. Plan 1) Recommend stool culture. 2) Clear liquid diet. Advance as tolerated. 3) Miralax 17 gm daily. 64 oz water daily. 4) Supportive care with antiemetics for now, however patient should consider outpatient colonoscopy for further evaluation of 6 month change in bowel habits. 5) Recommend 10% total body weight loss, alcohol abstinence, healthy diet & lifestyle for fatty liver findings on CT imaging. 6) Recommend primary team follow-up on abnormal lymph nodes & nodules as noted on CT imaging. Thank you for allowing us to participate in the care of this patient. If you should have any further questions or concerns, do not hesitate to contact us. Agree with HOWARD Roa as above Abd: Soft, Tender B/L LQ, ND, +BS Continue current therapy Recommend outpatient colonoscopy
[2016-08-13] MEDS: POLYETHYLENE (MIRALAX) 17 GM PACK PO SCH (14:13)
[2016-08-13] MEDS: HEPARIN SOD 5000 UNIT/0.5 ML CARP SQ SCH ×2 (14:15→20:49)
[2016-08-13] MEDS ORDERED: BISACODYL 10 MG SUPP PR STA (18:09)
[2016-08-13] MEDS ORDERED: PROCHLORPERAZINE INJ 10 MG in SYRINGE 8 ML IV PRN (18:15)
[2016-08-13] MEDS ORDERED: OXYCODONE/ACETAMINOPHEN 5-325 TAB PO PRN (18:30)
[2016-08-13] MEDS ORDERED: FLUTICASONE PROPIONATE NA SPR 16 GM BTL ONE (18:45)
[2016-08-14 00:20] VITALS: BP 148/103; PULSE 87
[2016-08-14] MEDS: D5NSS + 20MEQ KCL 1,000 ML IV SCH (03:22)
[2016-08-14 04:24] VITALS: BP 141/96; PULSE 89; TEMP 36.6; O2SAT 97
[2016-08-14] MEDS: MULTI-VITAMIN INFUSION INJ 10 ML, THIAMINE HCL INJ 100 MG, FoLIC ACID INJ 1 MG in SODIU... IV SCH (05:50)
[2016-08-14] MEDS: HEPARIN SOD 5000 UNIT/0.5 ML CARP SQ SCH ×2 (05:53→14:18)
[2016-08-14 06:48] LABS: BASO % 0.8 %; BASO ABS # 0.06 K/uL (0-0.2); COMPLETE YES; EOS % 2.2 %; HEMATOCRIT 45.7 % (42-52); IG% 0.1 %; LYMPH ABS # 0.85 K/uL (1.2-3.4); MEAN CELL VOLUME 94.8 fL (80-100); MEAN CORPUSCULAR HEMOGLOBIN 30.5 pg (25-34); MEAN CORPUSCULAR HGB CONC 32.2 g/dl (32-36); MEAN PLATELET VOLUME 10.9 fL (7.4-10.4); MONO % 7.8 %; NEUT % 78.1 %; PLATELET COUNT 206 K/uL (130-400); RED BLOOD COUNT 4.82 M/uL (4.7-6.1); WHITE BLOOD COUNT 7.72 K/uL (4.8-10.8)
[2016-08-14 07:14] VITALS: BP 149/86; PULSE 104; TEMP 36.6; O2SAT 94
[2016-08-14 07:24] LABS: ALKALINE PHOSPHATASE 112 U/L (45-117); ALT/SGPT 104 U/L (12-78); AST/SGOT 45 U/L (15-37); BLOOD UREA NITROGEN 8 mg/dl (7-18); BUN/CREATININE RATIO 6.8 (10-20); C-REACTIVE PROTEIN 1.11 mg/dl (0-0.29); CALCIUM 8.5 mg/dl (8.5-10.1); CARBON DIOXIDE 28 mmol/L (21-32); CHLORIDE 108 mmol/L (98-107); GLUCOSE 109 mg/dl (70-99); POTASSIUM 4.1 mmol/L (3.5-5.1); SODIUM 142 mmol/L (136-145)
[2016-08-14] MEDS ORDERED: PERFLUTREN LIPID MICROSPHERE (DEFINITY) IV ONE (07:47)
--- NOTE | 2016-08-14 07:47 | SURGERY PROGRESS NOTE ---
DATE: 08/14/2016 Jerome overall feels fine. He has no real change from yesterday. He is not complaining of any abdominal discomfort. His last vitals show a temperature of 36.6. His pulse rate was 104, respirations 18, blood pressure 149/86, O2 saturation is 94 on room air. His abdomen was benign. He has not moved his bowels yet. He stated he tolerated liquid diet without any problem. At this point, there is nothing surgically you can offer this gentleman. We will be able to follow him on a p.r.n. basis if need be and plans for gastroenterology have been made.
[2016-08-14] MEDS: ARIPIprazole TAB 15 MG TAB PO SCH (08:22)
[2016-08-14] MEDS: POLYETHYLENE (MIRALAX) 17 GM PACK PO SCH (08:23)
[2016-08-14] MEDS: TOPIRAMATE 100 MG TAB PO SCH (08:23)
[2016-08-14] MEDS: TOPIRAMATE 50 MG TAB PO SCH (08:24)
[2016-08-14] MEDS ORDERED: OPTIRAY 320 IV PRN (08:45)
[2016-08-14] MEDS ORDERED: FLUTICASONE PROPIONATE NA SPR 16 GM BTL SCH (09:00)
[2016-08-14] MEDS ORDERED: POLYETHYLENE (MIRALAX) 17 GM PACK PO SCH (09:00)
[2016-08-14] MEDS ORDERED: VENLAFAXINE HCL XR 75 MG CAPXR PO SCH (09:00)
--- NOTE | 2016-08-14 09:33 | DIAGNOSTIC IMAGING REPORT ---
ABDOMEN 2 VIEWS CLINICAL HISTORY: f/u partial SBO obstruction COMPARISON STUDY: CT abdomen and pelvis 08/13/2016 FINDINGS: Improved bowel pattern. No evidence for small bowel distention. Unremarkable air within the colon. No secondary signs of free air. IMPRESSION: Improved exam. Nonobstructive bowel pattern currently. Electronically signed by: Luis Enrique Sewell M.D. 08/14/2016 9:32 AM Dictated Date/Time: 08/14/2016 9:31 AM
--- NOTE | 2016-08-14 10:10 | DIAGNOSTIC IMAGING REPORT ---
CHEST CT WITH CONTRAST CT DOSE: 1084.04 mGy.cm HISTORY: Nodule pulm nodule seen on CT abd, dyspnea on exertion TECHNIQUE: Multiaxial CT images of the chest were performed following the intravenous administration of contrast. COMPARISON: CT abdomen and pelvis dated 08/13/2016 FINDINGS: Lungs are clear. Small nodularity left lung base measures up to 4.5 mm. Mediastinal and hilar regions show several nodes in the periaortic, pretracheal, as well as hilar regions measuring approximately 12 to 13 mm. Limited evaluation the upper abdomen again demonstrates fatty infiltration of liver. IMPRESSION: 1. Several indeterminate mediastinal and hilar nodes. 2. Small nodular density left base measuring 4.5 mm. 3. A 4-[address] of the chest follow-up is suggested initially 4. Mild cardiomegaly. Electronically signed by: Luis Enrique Sewell M.D. 08/14/2016 10:08 AM Dictated Date/Time: 08/14/2016 10:03 AM
[2016-08-14 11:19] VITALS: BP 143/93; PULSE 77; TEMP 36.6; O2SAT 95
[2016-08-14 15:06] VITALS: BP 141/96; PULSE 78; TEMP 36.3; O2SAT 95
--- NOTE | 2016-08-14 15:30 | ECHOCARDIOGRAM REPORT ---
*NOTICE TO RECEIVING [employer] This information is strictly Confidential and protected under [place] law. [place] law prohibits you from making any further disclosure of this information unless further disclosure is expressly permitted by the written consent of the person to whom it pertains or is authorized by law. A general authorization for the release of medical or other information is not sufficient for this purpose. Hospital accepts no responsibility if the information is made available to any other person, INCLUDING THE PATIENT. Interpretation Summary * Name: MEGHA MARROQUIN Study Date: 08/14/2016 07:31 AM BP: 149/86 mmHg * Patient Location: [facility]\S\N288\S\2 HR: 104 * : 1975 (M/d/yyyy) Gender: Male Height: 72 in * Age: 41 yrs Ethnicity: CA Weight: 337 lb * Ordering Physician: Lucy Langford * Performed By: Yue Andrade * * Reason For Study: LEG EDEMA, SOB, ENLARGED HEART ON CT * BSA: 2.7 m2 * -- Conclusions -- * The left ventricle is normal in size. * Left ventricular systolic function is normal. * Ejection Fraction = 60-65%. * The left ventricular wall motion is normal. * There is borderline concentric left ventricular hypertrophy. * The right ventricle is moderate to severely dilated. * There is moderate to severe right ventricular hypertrophy. * The right ventricular systolic function is normal. * No obvious valvular disease on very technically limited Doppler. Procedure Details * A complete two-dimensional transthoracic echocardiogram was performed (2D, M-mode, Doppler and color flow Doppler). * The study was technically difficult. * Limited views were obtained. * There were technical limitations due to patient'sbody habitus * A contrast injection of Definity was performed to improve assessment of LV function. * Contrast was injected into an intravenous site in the right arm. * One vial of Definity ultrasound contrast was diluted in normal saline to a total volume of 10 ml. A total of '3' ml of solution was administered during imaging. * Lot # [id number] of Definity utilized for procedure. * Expiration date 06/26. * The attending nurse who injected the contrast agent was LIANG VALENCIA RN. Left Ventricle * The left ventricle is normal in size. * There is borderline concentric left ventricular hypertrophy. * Ejection Fraction = 60-65%. * Left ventricular systolic function is normal. * The left ventricular wall motion is normal. Right Ventricle * The right ventricle is moderate to severely dilated. * There is moderate to severe right ventricular hypertrophy. * The right ventricular systolic function is normal. Atria * The left atrial size is normal. * Right atrium not well visualized. Tricuspid Valve * The tricuspid valve is not well visualized, but is grossly normal. * There is mild tricuspid regurgitation. Aortic Valve * The aortic valve is not well visualized. * There is no significant aortic regurgitation. Pulmonic Valve * The pulmonic valve is not well visualized. * There is no significant pulmonary regurgitation. Great Vessels * The aortic root is normal size. * No obvious dissection could be visualized. * The pulmonary artery is normal size. Pericardium/Pleural * There is no pericardial effusion. MMode 2D Measurements and Calculations IVSd 1.2 cm IVSs 1.6 cm LVIDd 4.3 cm LVIDs 2.9 cm LVPWd 0.98 cm LVPWs 1.7 cm IVS/LVPW 1.3 FS 32.4 % EDV(Teich) 84.4 ml ESV(Teich) 33.0 ml EF(Teich) 60.9 % EDV(cubed) 81.1 ml ESV(cubed) 25.1 ml EF(cubed) 69.1 % % IVS thick 31.8 % % LVPW thick 73.3 % LV mass(C)d 167.1 grams LV mass(C)dI 62.8 grams/m\S\2 LV mass(C)s 183.9 grams LV mass(C)sI 69.2 grams/m\S\2 CO(Teich) 4.5 l/min CI(Teich) 1.7 l/min/m\S\2 SV(Teich) 51.4 ml SI(Teich) 19.3 ml/m\S\2 CO(cubed) 4.9 l/min CI(cubed) 1.9 l/min/m\S\2 SV(cubed) 56.0 ml SI(cubed) 21.1 ml/m\S\2 ACS 1.5 cm asc Aorta Diam 3.4 cm LVOT diam 2.0 cm LVOT area 3.3 cm\S\2 LVAd ap4 24.9 cm\S\2 LVLd ap4 7.3 cm EDV(MOD-sp4) 70.0 ml LVAs ap4 14.4 cm\S\2 LVLs ap4 6.4 cm ESV(MOD-sp4) 27.0 ml EF(MOD-sp4) 61.4 % LVAd ap2 15.6 cm\S\2 LVLd ap2 6.6 cm EDV(MOD-sp2) 31.0 ml LVAs ap2 8.8 cm\S\2 LVLs ap2 5.6 cm ESV(MOD-sp2) 12.0 ml EF(MOD-sp2) 61.3 % CO(MOD-sp4) 3.8 l/min CI(MOD-sp4) 1.4 l/min/m\S\2 SV(MOD-sp4) 43.0 ml SI(MOD-sp4) 16.2 ml/m\S\2 CO(MOD-sp2) 1.7 l/min CI(MOD-sp2) 0.63 l/min/m\S\2 SV(MOD-sp2) 19.0 ml SI(MOD-sp2) 7.1 ml/m\S\2 Doppler Measurements and Calculations MV E max justin 52.3 cm/sec MV A max justin 80.5 cm/sec MV E/A 0.65 MV dec time 0.13 sec Ao V2 max 110.1 cm/sec Ao max PG 4.9 mmHg Ao max PG (full) 1.9 mmHg LIBRADO(V,A) 2.5 cm\S\2 LIBRADO(V,D) 2.5 cm\S\2 LV V1 max PG 2.9 mmHg LV V1 mean PG 1.3 mmHg LV V1 max 85.7 cm/sec LV V1 mean 52.3 cm/sec LV V1 VTI 15.8 cm SV(LVOT) 51.6 ml SI(LVOT) 19.4 ml/m\S\2 PA V2 max 86.4 cm/sec PA max PG 3.0 mmHg TR max justin 198.6 cm/sec
[2016-08-14] MEDS ORDERED: FLNIN (17:10)
[2016-08-14] MEDS ORDERED: ERGO1TAB10 PO (17:10)
[2016-08-14] MEDS ORDERED: MRLP17 PO (17:10)
[2016-08-14] MEDS ORDERED: OXYC-57 PO (17:10)
[2016-08-14] MEDS ORDERED: ONDA4TAB10 SL (17:10)
[2016-08-14] MEDS ORDERED: VENL75CA73 PO (17:10)
--- NOTE | 2016-08-14 17:24 | Discharge Instructions ---
Discharge Instructions Admission Reason for Admission: Abdominal pain, intractable nausea/vomiting Discharge Discharge Diagnosis / Problem: Abdominal pain, intractable nausea/vomiting, Right ventricular hypertrophy Discharge Goals Goal(s): Improve disease control, Therapeutic intervention Activity Recommendations Activity Limitations: resume your previous activity Lifting Limitations: none Exercise/Sports Limitations: as tolerated Shower/Bathe: no limitations . Instructions / Follow-Up Instructions / Follow-Up You were admitted for worsening abdominal pain x 2 months with nausea and vomiting. While you were here, you were found to have a partial small bowel obstruction on CT scan which did resolve by the next day on xray. Your symptoms were managed with pain medicine and medicine for nausea, however you will need to follow up with the [facility] in the office. You may need a colonoscopy and other further testing to look at your small intestine to figure out the cause of your ongoing abdominal pain. You were also found to have a severely fatty liver and mildly elevated liver tests on your blood work. You should quit drinking all alcohol, eat a low fat diet, and work on weight loss. This can also be followed by the [facility]. You were given a prescription for pain medicine and for nausea to take once you go home. While you were here, it was noted that you have had worsening shortness of breath and intermittent swelling in your legs. An ECHOCARDIOGRAM (ultrasound of the heart) was performed which showed moderate-severe right sided ventricular hypertrophy as well as moderate-severe right ventricular dilation, but there was NO congestive heart failure. You were also noted to have a small pulmonary nodule and some mildly enlarged lymph nodes in your chest on a CT scan. You should follow up with a Slip Cover Estimator, Dr. Junito Salas, within 2 weeks. It is ok for you to see one of his Physician's Assistants (Micky Cintron or Ernestine) first if you can get an appointment with one of them sooner. You may need further testing on your heart. You should certainly start using your CPAP for your sleep apnea on a regular basis and you will need to get a new mask. Usually you can call your [employer] equipment company that brought you the machine in order to obtain a new mask. Please follow up with your PCP Dr. Oakley within 1 week as well. Your blood pressure was elevated here somewhat and you may end up needing treatment for high blood pressure with your family doctor if this persists. Current Hospital Diet Patient's current hospital diet: Low Fat Diet Discharge Diet Recommended Diet: Low Fat Diet Procedures Procedures Performed: CT abdomen/pelvis CT Chest Echocardiogram Abdomen xray Pending Studies Studies pending at discharge: yes List of pending studies: Stool culture Stool ova and parasites Medical Emergencies . Who to Call and When: Medical Emergencies: If at any time you feel your situation is an emergency, please call 911 immediately. . Non-Emergent Contact Non-Emergency issues call your: Primary Care Provider Call Non-Emergent contact if: temperature is above 101, your pain is not controlled, your pain is worsening, your pain is unusual for you, your pain is concerning you, you have any medication questions . . "Provider Documentation" section prepared by Lucy Langford. VTE Core Measure Inpt VTE Proph given/why not?: Unfractionated heparin SQ [place] Drug Monitoring Program Search Results: patient reviewed within database, no issues identified
[2016-08-14 18:08] VITALS: BP 141/96; PULSE 78; TEMP 36.3; O2SAT 95
--- NOTE | 2016-08-14 20:11 | Discharge Summary ---
Discharge Summary Admission Date: Aug 13, 2016 at 03:42 Discharge Date: Aug 14, 2016 Discharge Disposition: Home Principal Diagnosis: Abdominal pain,intractable nausea/vomiting,partial SBO Problems/Secondary Diagnoses: Partial SBO Bipolar disorder Obesity Constipation Hepatomegaly Severe hepatic steatosis Mild cardiomegaly Mild splenomegaly Mildly enlarged mediastinal and hilar lymph nodes Pulmonary and pleural-based nodules in the left lower lobe ETOH abuse Obstructive sleep apnea Mod-severe RVH Mod-severe right ventricular dilatation Dyspnea on exertion Procedures: CT SCAN OF THE ABDOMEN AND PELVIS WITH IV CONTRAST CLINICAL HISTORY: Generalized abdominal pain. COMPARISON STUDY: Abdominal radiographs dated 03/03/2016. TECHNIQUE: Following the IV administration of 118 cc of Optiray 320, CT scan of the abdomen and pelvis is performed from the lung bases to the proximal femora. Images are reviewed in the axial, sagittal, and coronal planes. IV contrast was administered without complication. Automated dose control exposure was utilized. CT DOSE: 2348.89 mGy.cm FINDINGS: Lung bases: The heart is mildly enlarged and without pericardial effusion. There is a 9 mm pleural-based nodule in the left lower lobe along the major fissure seen on image #11. At least 3 additional left lower lobe pulmonary nodules are identified measuring up to 5 mm. There is no airspace consolidation or pleural effusion. Mildly enlarged subcarinal and hilar lymph nodes are partially visualized. A small hiatal hernia is noted. Liver: The contrast-enhanced liver is enlarged, measuring 20 cm in length. The liver demonstrates diffusely diminished attenuation consistent with hepatic steatosis. Fatty sparing is seen adjacent to the gallbladder fossa. There is no intrahepatic biliary ductal dilatation. The hepatic veins and portal veins are patent. Gallbladder: Unremarkable. Spleen: The spleen is mildly enlarged measuring 13.6 cm in length. Pancreas: Unremarkable. Adrenal glands: Unremarkable. Kidneys: The contrast enhanced kidneys are normal in size and without hydronephrosis. The kidneys enhance symmetrically. Abdominal vasculature: The abdominal aorta is normal in course and caliber. Bowel: There are mildly distended fluid-filled loops of proximal small bowel. These gradually transition to normal caliber loops. There is no evidence of bowel obstruction. There is mild to moderate colonic fecal retention. The appendix is well-visualized and normal. Peritoneum: There is no intraperitoneal free air or abdominal ascites. There is a fat-containing umbilical hernia. Lymphadenopathy: None. Pelvic viscera: The bladder, prostate, and seminal vesicles are normal as visualized. Skeletal structures: No lytic or blastic lesions are seen. IMPRESSION: 1. Mildly distended and fluid-filled loops of proximal small bowel are nonspecific. Cortical clinically for evidence of a mild enteritis. There is no evidence of small bowel obstruction, and no thick walled bowel loops are identified. 2. Hepatomegaly and severe hepatic steatosis. 3. Mild cardiomegaly. 4. Mild splenomegaly. 5. There are mildly enlarged mediastinal and hilar lymph nodes partially visualized. Additionally, there are pulmonary and pleural-based nodules in the left lower lobe measuring up to 9 mm. Follow-up with a nonemergent CT scan of the chest is recommended for further interrogation. ABDOMEN 2 VIEWS CLINICAL HISTORY: f/u partial SBO obstruction COMPARISON STUDY: CT abdomen and pelvis 08/13/2016 FINDINGS: Improved bowel pattern. No evidence for small bowel distention. Unremarkable air within the colon. No secondary signs of free air. IMPRESSION: Improved exam. Nonobstructive bowel pattern currently. Electronically signed by: Luis Enrique Sewell M.D. 08/14/2016 9:[address] WITH CONTRAST CT DOSE: 1084.04 mGy.cm HISTORY: Nodule pulm nodule seen on CT abd, dyspnea on exertion TECHNIQUE: Multiaxial CT images of the chest were performed following the intravenous administration of contrast. COMPARISON: CT abdomen and pelvis dated 08/13/2016 FINDINGS: Lungs are clear. Small nodularity left lung base measures up to 4.5 mm. Mediastinal and hilar regions show several nodes in the periaortic, pretracheal, as well as hilar regions measuring approximately 12 to 13 mm. Limited evaluation the upper abdomen again demonstrates fatty infiltration of liver. IMPRESSION: 1. Several indeterminate mediastinal and hilar nodes. 2. Small nodular density left base measuring 4.5 mm. 3. A 4-[address] of the chest follow-up is suggested initially 4. Mild cardiomegaly. ECHO: The left ventricle is normal in size. * Left ventricular systolic function is normal. * Ejection Fraction = 60-65%. * The left ventricular wall motion is normal. * There is borderline concentric left ventricular hypertrophy. * The right ventricle is moderate to severely dilated. * There is moderate to severe right ventricular hypertrophy. * The right ventricular systolic function is normal. * No obvious valvular disease on very technically limited Doppler. Consultations: Gastroenterology Medication Reconciliation New Medications: Ondasetron Odt (Zofran Odt) 4 Mg Tab 4 MG SL Q6H for Nausea, #6 TAB Fluticasone Propionate (Fluticasone Propionate) 50 Mcg/Act Spr 2 SPRAYS NA DAILY for 30 Days, #1 EA Oxycodone/Acetaminophen 5MG/325MG (Percocet 5MG/325MG) Tab 1-2 TAB PO Q4H PRN for Pain, #15 TAB Polyethylene (Miralax) 17 Gm Pow 17 GM PO DAILY for 30 Days Changed Medications: Ergocalciferol (Vitamin D2) 400 Unit Tab 400 UNITS PO DAILY for 30 Days (Changed from: 1.25 MG; WK) Venlafaxine Hcl (Venlafaxine Extended Rel) 75 Mg Cap 225 MG PO DAILY for 30 Days, CAP (Changed from: 150 MG) Continued Medications: Aripiprazole (Abilify) 15 Mg Tab 15 MG PO DAILY, TAB Tizanidine (Zanaflex) 4 Mg Cap 8 MG PO DAILY, CAP Topiramate (Topamax) 50 Mg Tab 50 MG PO DAILY, TAB Topiramate (Topamax) 100 Mg Tab 100 MG PO DAILY, TAB Referrals At Discharge Follow up Referrals: [facility] Referral - 08/19/16 with Jonh Oakley M.D. Plaster Molder Referral - Within 1-2 Weeks with Dylon Phelps D.O. Billing Specialist Referral - Within 1-2 Weeks with Junito Salas MD Discharge Exam Pt feeling better on day of discharge. Abd pain controlled with po percocet, less nausea, tolerating regular low fat diet. ECHO result was returned and reviewed with patient. Review of Systems: Constitutional: No fever Eyes: No problem reported ENT: No problem reported Respiratory: + dyspnea on exertion Cardiovascular: + edema, No chest pain Abdomen: + constipation, + nausea, + pain, No diarrhea, No vomiting Musculoskeletal: No problem reported Genitourinary - Male: No problem reported Neurologic: No problem reported Psychiatric: + substance abuse (drinks 6-8 beers daily) Endocrine: No problem reported Hematologic / Lymphatic: No problem reported Integumentary: No rash Physical Exam: General Appearance: WD/WN, no apparent distress, + obese Eyes: normal inspection, sclerae normal ENT: hearing grossly normal Neck: trachea midline Respiratory/Chest: lungs clear, normal breath sounds, no respiratory distress, no accessory muscle use Cardiovascular: regular rate, rhythm, no gallop, no murmur, normal peripheral pulses, + pertinent finding (trace pitting edema legs to knees bilat) Abdomen / GI: normal bowel sounds, soft, + hepatomegaly, + pertinent finding (mild diffuse +TTP w/o guarding or rebound tenderness, obese) Extremities: no calf tenderness Neurologic/Psychiatric: alert, normal mood/affect, oriented x 3 Skin: normal color, warm/dry, no rash Lymphatic: no adenopathy Hospital Course 41 y/o M w/Hx bipolar disorder, FLORENT[place] noncompliant with CPAP, and obesity. Pt states that he has had abdominal pain intermittently for 2 months along with nausea on a daily basis. He has occasional constipation and denies diarrhea. His pain became acutely worse and was accompanied by nausea and mostly dry heaving. He has not been able to tolerate PO intake. A CT of the abdomen was obtained in the ER which shows some mildly distended loops of proximal small bowel that are fluid filled but no definite SBO. he was admitted for pain control and for further evaluation of his acute on chronic abdominal pain and intractable nausea/vomiting. On the day after admission, he was still with significant nausea but no vomiting , and tolerated clears for lunch and dinner with nausea afterwards. Abdominal pain was still all across mid abdomen and is a 6/10. No BM in 2 days and has a pattern more towards constipation over the last few months. No heartburn, no blood in stool. Pt also complains of his whole body filling up with fluid a few times per week including legs, arms, and face. He c/o snoring and brother notes a wheezing noise which is clearly coming from upper airway. Pt denies any recent med changes, he is noncompliant with his CPAP machine at home. He notes dyspnea with exertion over the last few weeks. He has never smoked, no toxic fume exposure, no travel in the last year. CT Abd/Pel with IV Contrast only: 1. Mildly distended and fluid-filled loops of proximal small bowel are nonspecific. Cortical clinically for evidence of a mild enteritis. There is no evidence of small bowel obstruction, and no thick walled bowel loops are identified. 2. Hepatomegaly and severe hepatic steatosis. 3. Mild cardiomegaly. 4. Mild splenomegaly. 5. There are mildly enlarged mediastinal and hilar lymph nodes partially visualized. Additionally, there are pulmonary and pleural-based nodules in the left lower lobe measuring up to 9 mm. Follow-up with a nonemergent CT scan of the chest is recommended for further interrogation. 41 yo obese male with h/o bipolar d/o, here with persistent diffuse abd pain and nausea with vomiting. Found to have severe fatty liver, mildly distended fluid filled proximal small bowel loops, pulmonary nodule. and mildly enlarged hilar and mediastinal HIRAL on CT abd/pel. Differential includes infection, IBD, malignancy? Severe fatty liver, mildly elevated LFTs. Heavy EtOH use, +FH of father of [place] cirrhosis--> at risk for cirrhosis. - GI consulted and recommended treatment for constipation and colonoscopy as an outpatient - Stool cultures ordered and preliminary negative at time of discharge, Stool O& P also pending, Fecal leukocytes were negative and Hemoccult was negative--> will need f/u on stool studies as an outpatient - Stool softeners, miralax daily. Continue aggressive bowel regimen. - Gen Surg consulted and do not see reason for surgery at this time. -recommend outpatient f/u with GI and may need barium swallow with SBFT as well if symptoms persist in addition to colonoscopy -sent home with small supply of percocet and Zofran prn pain and nausea Bipolar disorder-stable - Continue home topiramate 150 mg QAM, effexor 150 mg QAM and abilify 15 mg QAM. Pulmonary nodule, Mediastinal HIRAL on CT Chest, [place]OR[place] noncompliant with CPAP, Mod- severe RVH and Mod-severe RV dilatation with preserved RV systolic function on ECHO - 4.5 mm lung nodule present in LLL -case reviewed with Pulm Dr. Salas who wants to see pt in the office within 2 weeks for f/u on all of these Pulm related issues -will need f/u imaging at some point on the nodule -may need right heart catheterization to assess for Pulmonary HTN -encouraged compliance with CPAP at home Excessive ETOH intake - Heavy intake between 2-12 beers daily- denies dependence or a history of withdrawal - Counseled on cessation with CT scan findings of hepatomegaly and hepatic steatosis. Also counseled on improved diet and exercise, weight loss recommended. - Received daily banana bag while admitted DVT ppx: SCDs, heparin SQ Code Status: Full Code Disposition: to home Vitals reviewed NAD, obese, AAOx3 HEENT anicteric sclerae, obese neck, no HIRAL, whistling sound noted with nasal breathing RRR no mgr nl S1S2 PULM CTAB no wcr Abd +BS, soft, diffusely +TTP without guarding or rebound tenderness, no masses , +hepatomegaly Ext trace pitting edema legs bilat SKin no rashes -bisacodyl suppos -collect stool sample for cultures -plan for outpt colonoscopy -encouraged weight loss, abstinence from EtOH, low fat and low carb diet for fatty liver -try percocet for pain to see if could stephane percocet for home use for pain -antiemetics -check Chest CT here given SOB, pulm nodules and hilar adenopathy -check ECHO given edema and enlarged heart seen on CT -watch for EtOH withdrawal as is tachy and hypertensive -Flonase for upper airway congestion -use CPAP tonight and at home (has at home) -repeat AAS in AM -adv diet as tolerated -appreciate GI consult Total Time Spent: Greater than 30 minutes This includes examination of the patient, discharge planning, medication reconciliation, and communication with other providers. Discharge Instructions Please refer to the electronic Patient Visit Report (Discharge Instructions) for additional information. Follow-Up With PCP within 1 week With GI within 2 weeks With Pulm within 2 weeks Additional Copies To Dylon Phelps D.O.; Jonh Oakley M.D.; uJnito Salas MD
--- NOTE | 2016-08-17 12:59 | EDITING REQUIRED CODING QUERY ---
CODING QUERY Dr. Langford, To promote full compliance with coding requirements relating to patient care, provider participation is requested in all cases of neon glass bender uncertainty. Please assist us with the question(s) below: Coding Question(s): Discharge Summary states patient has partial SBO but Discharge also states no evidence of small bowel obstruction. Please clarify below: (x ) Partial SBO ( ) Partial SBO Ruled Out ( ) Other Please Explain: Physician's Response(s): Thank you Cali Whaley Principal Diagnosis: "_that condition established after study, to be chiefly responsible for occasioning the admission of the patient to the hospital for care." Co-Existing Principal Diagnosis: "_when two or more diagnoses equally meet the criteria for principal diagnosis as determined by the circumstances of admission, diagnostic work up, and/or therapy provided, and the Alphabetic Index, Tabular List, or another coding guideline does not provide sequencing direction, any one of the diagnoses may be sequenced first." "When the physician has documented what appears to be a current diagnosis in the body of the record, but has not included the diagnosis in the final diagnostic statement, the physician should be asked whether the diagnosis should be added." (Source Coding [facility] 2 QTR90. p3-4)
[2016-08-19 16:02] LABS: O&P SOURCE OTHER-STOOL
[2016-09-17] MEDS ORDERED: VENL150C PO (13:08)
[2016-09-17] MEDS ORDERED: FRS/40 PO (13:08)
[2016-09-17] MEDS ORDERED: NARA2.5T2 PO (13:08)
[2016-09-17] MEDS ORDERED: VENL75CA PO (13:08)
[2016-09-17] MEDS ORDERED: NAPR-1168 PO (13:08)
== END 2016-08-14 18:47 | disposition home or self-care (01) | DRG 389 ==
LOC: ENRESERVDT → ENRESERVTM → C.EDB 00:22 → C.MED 03:42
PROVIDERS: ADMIT Internal Medicine; ATTEND Family Medicine
DX: K56.60 Unspecified intestinal obstruction (principal); Z68.42 Body mass index [BMI] 45.0-49.9, adult; K52.9 Noninfective gastroenteritis and colitis, unspecified; I10 Essential (primary) hypertension; F31.9 Bipolar disorder, unspecified; K59.00 Constipation, unspecified; I51.7 Cardiomegaly; R16.1 Splenomegaly, not elsewhere classified; G47.33 Obstructive sleep apnea (adult) (pediatric); R91.1 Solitary pulmonary nodule; R59.0 Localized enlarged lymph nodes; F10.10 Alcohol abuse, uncomplicated; R16.0 Hepatomegaly, not elsewhere classified; K76.0 Fatty (change of) liver, not elsewhere classified; E66.9 Obesity, unspecified; Z91.19 Patient's noncompliance with other medical treatment and regimen; Z87.891 Personal history of nicotine dependence; Z98.890 Other specified postprocedural states; Z83.3 Family history of diabetes mellitus; Z83.79 Family history of other diseases of the digestive system; Z79.899 Other long term (current) drug therapy

== ENCOUNTER → 2016-08-26 | Outpatient (CLI) | payer OTHER ==
[~2016-08-26] MED LIST changes: +FLNIN; +FRS/40 PO; +MRLP17 PO; +NAPR-1168 PO; +NARA2.5T2 PO; +ONDA4TAB10 SL; +OXYC-57 PO; +VENL150C PO; +VENL75CA PO
[2016-08-26 12:23] LABS: BLOOD UREA NITROGEN 19 mg/dl (7-18); BUN/CREATININE RATIO 17.5 (10-20); CALCIUM 9.3 mg/dl (8.5-10.1); CARBON DIOXIDE 27 mmol/L (21-32); CHLORIDE 106 mmol/L (98-107); GLUCOSE 95 mg/dl (70-99); POTASSIUM 3.9 mmol/L (3.5-5.1); SODIUM 141 mmol/L (136-145)
== END | disposition home or self-care (01) ==
LOC: C.LAB1850 10:32
PROVIDERS: ATTEND Internal Medicine Cardiovascular Disease
DX: I50.9 Heart failure, unspecified (principal)

== ENCOUNTER → 2016-09-27 | Day surgery (SDC) | payer OTHER ==
[2016-09-17 13:08] VITALS: Ht 182.9 cm; Wt 152.3 kg
[~2016-09-27] VITALS: Ht 182.9 cm; Wt 152.3 kg
[~2016-09-27] MED LIST changes: -ERGO1TAB10 PO; -FLNIN; +LIDOCAINE HCL 2% 2 ML VIAL (20MG/ML) ONE; +MIDAZOLAM HCL 1 MG/ML 2ML VIAL ONE; -MRLP17 PO; -ONDA4TAB10 SL; -OXYC-57 PO; +PROPOFOL IV EMULSION 10 MG/ML 20 ML VIAL IV ONE; -TOPI100T20 PO; -VENL75CA73 PO
--- NOTE | 2016-09-27 12:04 | Endo History and Physical ---
History & Physical Date of Service: Sep 27, 2016. Chief Complaint: abdominal pain Referring Physician: Dr. Jonh Oakley History of Present Illness 41 yo CM who presents for colonoscopy secondary to abdominal pain. Past Surgical History Hx Cardiac Surgery: No Hx Internal Defibrillator: No Hx Pacemaker: No Hx Abdominal Surgery: Yes (HERNIA REPAIR) Hx of Implantable Prosthesis: No Hx Post-Op Nausea and Vomiting: No Hx Cancer Surgery: No Hx Thoracic Surgery: No Hx Orthopedic: Yes (RT KNEE SURGERY) Hx Urinary Tract Surgery: No Family History None Social History Smoking Status: Never Smoker Hx Substance Use: No Hx Alcohol Use: Yes (OCCASIONAL) Allergies Coded Allergies: No Known Allergies (Verified , 09/27/16) Current Medications Reported Home Medications Medications Dose Route/Sig Max Daily Dose Days Date Category Naprosyn Ds (Naproxen) 550 Mg Tab 550 Mg PO Q12 PRN 09/17/16 Reported Amerge (Naratriptan Hcl) 2.5 Mg Tab 1 Tab PO UD PRN 09/17/16 Reported Lasix (Furosemide) 40 Mg Tab 40 Mg PO QAM 09/17/16 Reported Effexor Xr (Venlafaxine Hcl) 150 Mg Cap 1 Cap PO HS 09/17/16 Reported Effexor Xr (Venlafaxine Hcl) 75 Mg Cap 1 Cap PO HS 09/17/16 Reported Zanaflex (Tizanidine HCl) 4 Mg Cap 8 Mg PO HS 03/03/16 Reported Abilify (Aripiprazole) 15 Mg Tab 15 Mg PO HS 03/03/16 Reported Topamax (Topiramate) 50 Mg Tab 50 Mg PO HS 03/03/16 Reported Vital Signs Weight (Kilograms): 152.27 Height (Feet): 6 Height (Inches): 0 Date Time Temp Pulse Resp B/P Pulse Ox O2 Delivery O2 Flow Rate FiO2 09/27/16 11:06 37.2 81 20 147/96 96 Room Air Physical Exam General Appearance: WD/WN, no apparent distress Respiratory/Chest: Auscultation: breath sounds normal Cardiovascular: Heart Auscultation: RRR Abdomen: Bowel Sounds: normal Inspection & Palpation: soft, non-distended, no tenderness, guarding & rebound Assessment and Plan Assessment: 41 yo CM who presents for colonoscopy secondary to abdominal pain. Plan: Proceed with colonoscopy.
--- NOTE | 2016-09-27 12:43 | GI REPORT ---
Procedure Date: 09/27/2016 12:02 PM Procedure: Colonoscopy Indications: Generalized abdominal pain Medicines: Monitored Anesthesia Care Complications: No immediate complications. Estimated Blood Loss: Estimated blood loss: none. Procedure: Pre-Anesthesia Assessment: - Prior to the procedure, a History and Physical was performed, and patient medications and allergies were reviewed. The patient's tolerance of previous anesthesia was also reviewed. The risks and benefits of the procedure and the sedation options and risks were discussed with the patient. All questions were answered, and informed consent was obtained. Prior Anticoagulants: The patient has taken no previous anticoagulant or antiplatelet agents. ASA Grade Assessment: III - A patient with severe systemic disease. After reviewing the risks and benefits, the patient was deemed in satisfactory condition to undergo the procedure. After I obtained informed consent, the scope was passed under direct vision. Throughout the procedure, the patient's blood pressure, pulse, and oxygen saturations were monitored continuously. The scope was introduced through the anus and advanced to the terminal ileum. The colonoscopy was performed without difficulty. The patient tolerated the procedure well. The quality of the bowel preparation was good. The ileocecal valve, appendiceal orifice, and rectum were photographed. Findings: Six sessile polyps were found in the sigmoid colon and in the ascending colon. The polyps were 5 to 8 mm in size. These polyps were removed with a hot snare. Resection and retrieval were complete. Impression: - Six 5 to 8 mm polyps in the sigmoid colon and in the ascending colon, removed with a hot snare. Resected and retrieved. Recommendation: - Resume previous diet. - Continue present medications. - Repeat colonoscopy for surveillance based on pathology results. - Return to primary care physician as previously scheduled. Dylon Phelps, DO 09/27/2016 12:42:38 PM This report has been signed electronically. Note Initiated On: 09/27/2016 12:02 PM I attest to the content of the Intraoperative Record and orders documented therein, exceptions below
--- NOTE | 2016-09-27 12:44 | Discharge Instructions ---
Endoscopy Patient Instructions Date / Procedure(s) Performed Sep 27, 2016. Colonoscopy Allergy Information Coded Allergies: No Known Allergies (Verified , 09/27/16) Discharge Date / Findings Sep 27, 2016. Colon polyps Medication Instructions OK to resume all medications today as prescribed. Reported Home Medications Medications Dose Route/Sig Max Daily Dose Days Date Category Naprosyn Ds (Naproxen) 550 Mg Tab 550 Mg PO Q12 PRN 09/17/16 Reported Amerge (Naratriptan Hcl) 2.5 Mg Tab 1 Tab PO UD PRN 09/17/16 Reported Lasix (Furosemide) 40 Mg Tab 40 Mg PO QAM 09/17/16 Reported Effexor Xr (Venlafaxine Hcl) 150 Mg Cap 1 Cap PO HS 09/17/16 Reported Effexor Xr (Venlafaxine Hcl) 75 Mg Cap 1 Cap PO HS 09/17/16 Reported Zanaflex (Tizanidine HCl) 4 Mg Cap 8 Mg PO HS 03/03/16 Reported Abilify (Aripiprazole) 15 Mg Tab 15 Mg PO HS 03/03/16 Reported Topamax (Topiramate) 50 Mg Tab 50 Mg PO HS 03/03/16 Reported Provider Instructions Activity Restrictions - No exercising or heavy lifting for 24 hours. - Do not drink alcohol the day of the procedure. - Do not drive a car or operate machinery until the day after the procedure. - Do not make any important decisions or sign important papers in 24 hours after the procedure. Following Day: - Return to full activity which may include returning to work/school. Diet Start your diet with liquids and light foods (jello, soup, juice, toast). Then eat your usual diet if not nauseated. Treatment For Common After Affects For mild abdominal pain, bloating, or excessive gas: - Rest - Eat lightly - Lie on right side Follow-Up Information Follow-up with Dr. Jonh Oakley as scheduled Anesthesia Information What You Should Know You have had a procedure that required some medicine to reduce anxiety and discomfort. This treatment is called moderate sedation. After receiving the treatment, you may be sleepy, but you will be able to breathe on your own. The effects of the treatment may last for several hours. Follow these instructions along with Activity/Diet recommendations noted above: * Do NOT do anything where dizziness or clumsiness would be dangerous. * Rest quietly at home today, then you can be up and about tomorrow. * Have a responsible person stay with you the rest of today. * You may have had an I.V. today. If so, you may take the dressing off later today. Recommendations Call your doctor if: * Trouble breathing * Continuous vomiting for more than 24 hours * Temperature above 101 degrees * Severe abdominal pain or bloating * Pain not relieved by pain medicine ordered * There is increased drainage or redness from any incision * A large amount of rectal bleeding greater than 2-3 tablespoons. (If you had a polyp/s removed or have hemorrhoids, a small amount of blood - from the rectum is to be expected.) * You have any unanswered questions or concerns. IN THE EVENT OF A SERIOUS EMERGENCY, GO TO THE NEAREST EMERGENCY ROOM Your discharge instructions were prepared by provider Dylon Phelps. Patient Instructions Signature Page Shreyas Prasad Patient (or Guardian) Signature/Date: I have read and understand the instructions given to me by my caregivers. Caregiver/RN/Doctor Signature/Date: The above-named patient and/or guardian has received patient instructions on this date. + Original Patient Signature Page (only) stays with chart. Please make copy for patient.
--- NOTE | 2016-09-27 12:58 | Anesthesiology Progress Note ---
Anesthesia Post Op Note Date & Time Sep 27, 2016 at 12:57 Vital Signs Pain Intensity: 0 Vital Signs Past 12 Hours Date Time Temp Pulse Resp B/P Pulse Ox O2 Delivery O2 Flow Rate FiO2 09/27/16 12:43 80 14 139/99 96 Mask 10 09/27/16 11:06 37.2 81 20 147/96 96 Room Air Notes Mental Status: alert / awake / arousable, participated in evaluation Pt Amnestic to Procedure: Yes Nausea / Vomiting: adequately controlled Pain: adequately controlled Airway Patency, RR, SpO2: stable & adequate BP & HR: stable & adequate Hydration State: stable & adequate Anesthetic Complications: no major complications apparent
[2016-09-27 13:13] VITALS: BP 121/72; PULSE 83; O2SAT 93
== END | disposition home or self-care (01) ==
LOC: C.GI 10:20
PROVIDERS: ATTEND Internal Medicine
DX: R10.84 Generalized abdominal pain (principal); D12.2 Benign neoplasm of ascending colon; D12.5 Benign neoplasm of sigmoid colon; G47.33 Obstructive sleep apnea (adult) (pediatric); I10 Essential (primary) hypertension; E78.5 Hyperlipidemia, unspecified; E66.9 Obesity, unspecified; F32.9 Major depressive disorder, single episode, unspecified; F17.220 Nicotine dependence, chewing tobacco, uncomplicated